=== PATIENT | male | born 1995 | race Caucasian/White ===

== ENCOUNTER 2018-02-17 17:44 | Emergency (ER) | payer BC, OTHER ==
[2018-02-17] MEDS ORDERED: NS 0.9% 1000 ML* 1,000 ML IV ONE (19:18)
--- NOTE | 2018-02-17 19:18 | ED ---
Allergic Reaction/Systemic - HPI Summary HPI Summary: A 22 y/o M presents to ED s/p possible allergic reaction to prescription onset yesterday. Pt had a staph infection "a few months ago" that was treated. He thought he had a new infection, and he [place] [facility] [place] He was prescribed Bactrim which he began taking four days ago, he last took it yesterday morning. Yesterday, he began having dizziness, diaphoresis, racing palpitations. He has tried eating and drinking to no relief. He states still feeling "off" at bedside. He [place] [facility] [place] recommended that he go to the ED for further evaluation. He denies dyspnea, fever, swelling of lips and tongue, cold-like symptoms, rash, pedal edema. He states the area on his nose where he thought the infection was has improved. Denies PMHx. Pt lives in an apartment. - History of Current Complaint Chief Complaint: EDAllergicReaction Time Seen by Provider: 02/17/18 18:02 Hx Obtained From: Patient, Other: - friend present Onset/Duration: Gradual Onset, Started days ago - yesterday, Still Present Timing: Constant Severity Initially: Moderate Severity Currently: Mild Pain Intensity: 0 Pain Scale Used: 0-10 Numeric Associated Signs And Symptoms: Positive: Diaphoresis, Other: - pos: dizziness, racing palpitations. neg: fever, swelling of lips and tongue, cold-like symptoms , pedal edema. Negative: Difficulty Breathing, Rash - Allergies/Home Medications Allergies/Adverse Reactions: Allergies Allergy/AdvReac Type Severity Reaction Status Date / Time No Known Allergies Allergy Verified 02/17/18 17:49 PMH/Surg Hx/FS Hx/Imm Hx Previously Healthy: No - staph infection Endocrine/Hematology History: Denies: Hx Diabetes Cardiovascular History: Denies: Hx Hypertension, Hx Pacemaker/ICD History: Denies: Hx Renal Disease Sensory History: Denies: Hx Hearing Aid Psychiatric History: Denies: Hx Panic Disorder Infectious Disease History: No Infectious Disease History: Denies: Traveled Outside the [place] in Last 30 Days - Family History Family History: Non-contributory. - Social History Occupation: Student Lives: Dormitory/Roommates Alcohol Use: Rare Substance Use Type: Reports: None Smoking Status (MU): Never Smoked Tobacco Review of Systems Positive: Skin Diaphoresis. Negative: Fever ENT: Negative Negative: Other - neg: edema of lips/tongue Positive: Palpitations Respiratory: Negative Negative: Other - neg: dyspnea Negative: Edema - neg: pedal edema Negative: Rash Neurological: Other - pos: dizziness All Other Systems Reviewed And Are Negative: Yes Physical Exam - Summary Physical Exam Summary: Appearance: Well appearing, no pain distress Skin: warm, dry, reflects adequate perfusion Head/face: normal Eyes: EOMI, MANNIE ENT: mucous membranes moist Neck: supple, non-tender Respiratory: CTA, breath sounds present Cardiovascular: RRR, pulses symmetrical Abdomen: non-tender, soft Bowel Sounds: present Musculoskeletal: normal, strength/ROM intact Neuro: normal, sensory motor intact, A&Ox3 Triage Information Reviewed: Yes Vital Signs On Initial Exam: Initial Vitals Temp Pulse Resp BP Pulse Ox 98.6 F 87 16 116/71 96 02/17/18 17:46 02/17/18 17:46 02/17/18 17:46 02/17/18 17:46 02/17/18 17:46 Vital Signs Reviewed: Yes Diagnostics - Vital Signs Vital Signs Temp Pulse Resp BP Pulse Ox 02/17/18 17:46 98.6 F 87 16 116/71 96 - Laboratory Lab Statement: Any lab studies that have been ordered have been reviewed, and results considered in the medical decision making process. Allergic Reaction Course/Dx - Course Course Of Treatment: Patient had been feeling lightheaded on Bactrim for a superficial skin infection of the nose. This has since resolved. He discontinue the medication. Vitals home normal with regular heartbeat. No significant orthostasis but he was treated with IV fluids with resolution of symptoms. Discharged to follow-up with his [facility]. - Diagnoses Differential Diagnosis/HQI/PQRI: Positive: Anaphylaxis, Local Allergic Reaction , Other - Vertigo, upper respiratory infection Provider Diagnoses: Medication side effect, Lightheadedness Discharge - Sign-Out/Discharge Documenting (check all that apply): Patient Departure - DC - Discharge Plan Condition: Improved Disposition: HOME Patient Education Materials: Lightheadedness (ED) Referrals: [facility] [place] [Z.BUSINESS, APPLICATION, OTHER] - Additional Instructions: Do not take sulfa medications. Drink plenty of fluids. Avoid exertion until you are feeling well. Follow up with [facility]. Return if worse, new symptoms or other concerns. - Billing Disposition and Condition Condition: IMPROVED Disposition: Home - Attestation Statements Document Initiated by Pattie: Yes Documenting Scribe: Claudio Miller Provider For Whom Pattie is Documenting (Include Credential): Dr. David Peraza MD Scribe Attestation: I, Claudio Miller, scribed for Dr. David Peraza MD on 02/17/18 at 2157. Scribe Documentation Reviewed: Yes Provider Attestation: The documentation as recorded by the pattie, Claudio Miller accurately reflects the service I personally performed and the decisions made by me, Dr. David Peraza MD
[2018-02-17 20:39] VITALS: BP 118/78
== END 2018-02-17 20:38 | disposition home or self-care (01) ==
LOC: ED 17:44
DX: R42 Dizziness and giddiness (principal); R00.2 Palpitations; R61 Generalized hyperhidrosis; T37.0X5A Adverse effect of sulfonamides, initial encounter; Y92.9 Unspecified place or not applicable
CPT/HCPCS: 99282

== ENCOUNTER 2018-08-14 15:40 | Emergency (ER) | payer OTHER ==
[2018-08-14] MEDS ORDERED: Diazepam TAB(*) 5 MG PO ONE (18:07)
--- NOTE | 2018-08-14 19:16 | ED ---
Back Pain - HPI Summary HPI Summary: Patient complains of sudden onset left side mid back pain while jumping rope. Denies fall, head injury, urinary retention, incontinence, loss of sensation in lower extremities. Patient ambulatory. Denies any other pain injury or symptoms. Medical history is none. - History of Current Complaint Chief Complaint: EDBackInjuryPain Stated Complaint: BACK PAIN PER EMS Time Seen by Provider: 08/14/18 17:42 Hx Obtained From: Patient Onset/Duration: Sudden Onset, Lasting Hours Onset/Duration: Started Hours Ago Timing: Constant Back Pain Location: Is Discrete @ Severity Initially: Severe Severity Currently: Severe Pain Intensity: 10 Pain Scale Used: 0-10 Numeric Character: Throbbing, Spasmodic Aggravating Symptom(s): Movement, Bending Associated Signs And Symptoms: Positive: Negative - Allergies/Home Medications Allergies/Adverse Reactions: Allergies Allergy/AdvReac Type Severity Reaction Status Date / Time sulfamethoxazole Allergy Dizziness Verified 08/14/18 15:56 [From Bactrim] trimethoprim [From Bactrim] Allergy Dizziness Verified 08/14/18 15:56 PMH/Surg Hx/FS Hx/Imm Hx Endocrine/Hematology History: Denies: Hx Diabetes Cardiovascular History: Denies: Hx Hypertension, Hx Pacemaker/ICD History: Denies: Hx Renal Disease Sensory History: Denies: Hx Hearing Aid Opthamlomology History: Denies: Hx Eye Prosthesis EENT History: Denies: Hx Deafness Neurological History: Denies: Hx Dementia Psychiatric History: Denies: Hx Panic Disorder Infectious Disease History: No Infectious Disease History: Denies: Traveled Outside the [place] in Last 30 Days - Family History Family History: Non-contributory. - Social History Alcohol Use: Weekly Substance Use Type: Reports: None Smoking Status (MU): Never Smoked Tobacco Review of Systems Constitutional: Negative Eyes: Negative ENT: Negative Cardiovascular: Negative Respiratory: Negative Gastrointestinal: Negative Genitourinary: Negative Musculoskeletal: Other Skin: Negative Neurological: Negative Psychological: Normal All Other Systems Reviewed And Are Negative: Yes Physical Exam - Summary Physical Exam Summary: Tenderness to paraspinal muscles along thoracic spinal left side. Back exam otherwise unremarkable. PMS intact on bilateral lower extremities. Abdomen soft nontender. Lung sounds clear to auscultation bilaterally. RRR. Triage Information Reviewed: Yes Vital Signs On Initial Exam: Initial Vitals Temp Pulse Resp BP Pulse Ox 97.8 F 75 16 124/75 99 04/24/19 15:49 08/14/18 15:49 08/14/18 15:49 08/14/18 15:49 08/14/18 15:49 Vital Signs Reviewed: Yes Appearance: Positive: Well-Appearing Skin: Positive: Warm Head/Face: Positive: Normal Head/Face Inspection Eyes: Positive: Normal Neck: Positive: Supple Respiratory/Lung Sounds: Positive: Clear to Auscultation Cardiovascular: Positive: Normal Abdomen Description: Positive: Nontender Musculoskeletal: Positive: Normal Neurological: Positive: Normal Psychiatric: Positive: Normal AVPU Assessment: Alert - Victor Manuel Coma Scale Best Eye Response: 4 - Spontaneous Best Motor Response: 6 - Obeys Commands Best Verbal Response: 5 - Oriented Coma Scale Total: 15 Diagnostics - Vital Signs Vital Signs Temp Pulse Resp BP Pulse Ox 08/14/18 18:20 16 08/14/18 18:00 62 100 08/14/18 17:52 66 112/65 98 08/14/18 17:23 76 116/58 99 08/14/18 17:00 68 98 08/14/18 16:52 71 113/63 99 08/14/18 16:22 73 107/68 98 08/14/18 16:00 73 99 08/14/18 15:52 78 118/79 99 08/14/18 15:49 97.8 F 75 16 124/75 99 - Laboratory Lab Statement: Any lab studies that have been ordered have been reviewed, and results considered in the medical decision making process. Back Pain Course/Dx - Course Course Of Treatment: Patient complains of sudden onset left side mid back pain while jumping rope. Denies fall, head injury, urinary retention, incontinence, loss of sensation in lower extremities. Patient ambulatory. Denies any other pain injury or symptoms. Medical history is none. Physical exam:Tenderness to paraspinal muscles along thoracic spinal left side. Back exam otherwise unremarkable. PMS intact on bilateral lower extremities. Abdomen soft nontender. Lung sounds clear to auscultation bilaterally. RRR. Vital signs within normal limits. Patient's symptoms improved with Valium 5 mg by mouth. Patient discharged home in stable condition with diagnosis of muscle spasm. Rx for Valium. - Diagnoses Provider Diagnoses: Muscle spasm Discharge - Sign-Out/Discharge Documenting (check all that apply): Patient Departure Patient Received Moderate/Deep Sedation with Procedure: No - Discharge Plan Condition: Stable Disposition: HOME Prescriptions: Diazepam TAB(*) [Valium TAB(*)] 5 mg PO TID PRN 2 Days #6 tab MDD 3 tabs PRN Reason: Pain Patient Education Materials: Muscle Spasm (ED) Referrals: No Primary Care Phys,NOPCP [Primary Care Provider] - Additional Instructions: Rest. Avoid strenuous activity until symptoms improve. Take Valium as directed. Do not drive or operative machinery while on this medication as it can make you drowsy. Follow-up with orthopedics Dr Moser if symptoms persist. Return to the ED for any new or worsening symptoms. - Billing Disposition and Condition Condition: STABLE Disposition: Home
[2018-08-14 19:33] VITALS: BP 109/61
== END 2018-08-14 19:32 | disposition home or self-care (01) ==
LOC: ED 15:40
DX: M62.830 Muscle spasm of back (principal); Z88.2 Allergy status to sulfonamides
CPT/HCPCS: 99282; A9270-GY